=== PATIENT | female | born 1970 | race American Indian/Alaskan Native ===

== ENCOUNTER 2019-02-15 13:44 | Outpatient (CLI) | payer OTHER | END 2019-02-15 13:45 | disposition home or self-care (01) | LOC: C.USIC 13:44 ==

== ENCOUNTER 2019-02-17 18:14 | Emergency (ER) | payer OTHER ==
[2019-02-17] MEDS ORDERED: Sodium Chloride 0.9% 1,000 ML IV STA (19:35)
--- NOTE | 2019-02-17 19:40 | C.PDOC ---
History Of Present Illness 48 y/o F c PMHx knee arthritis p/w back pain x 3 days. Pain is lower back, midline, sharp, intermittent, worse with movement, radiates to LLQ and down L thigh towards L knee. Severe in intensity. Denies fever, chills, chest pain, dys pnea, trauma, nausea, vomiting, diarrhea, constipation, dysuria, hormone use, recent travel, cough. PMD [place] Time Seen by Provider: 02/17/19 19:19 Chief Complaint (Nursing): Abdominal Pain Past Medical History Vital Signs: Last Vital Signs Temp 98.3 F 02/17/19 18:19 Pulse 71 02/17/19 18:19 Resp 17 02/17/19 18:19 BP 145/84 02/17/19 18: Pulse Ox 100 02/17/19 18:19 - Medical History PMH: Arthritis Surgical History: No Surg Hx Family History: States: No Known Family Hx - Social History Hx Alcohol Use: No Hx Substance Use: No - Immunization History Hx Tetanus Toxoid Vaccination: No Hx Influenza Vaccination: Yes Hx Pneumococcal Vaccination: No Review Of Systems Except As Marked, All Systems Reviewed And Found Negative. Constitutional: Negative for: Fever Respiratory: Negative for: Shortness of Breath Physical Exam - Physical Exam Additional Physical Exam Comments: gen nad head nc/at eyes perrl ent mmm neck supple chest no tenderness cv regular rate lungs cta bl abd tenderness without guarding or rebound back no cva or midline tenderness extremities no deformity, no calf edema or tenderness skin no rash neuro alert, no focal deficit ED Course And Treatment - Laboratory Results Result Diagrams: 02/17/19 19:50 02/17/19 19:50 O2 Sat by Pulse Oximetry: 100 Medical Decision Making Medical Decision Making: CT abd/pelvis EXAM: CT Abdomen and Pelvis with IV contrast CLINICAL HISTORY: Llq and back pain TECHNIQUE: Axial computed tomography images of the abdomen and pelvis with intravenous contrast. 0.00 mGy-cm CONTRAST: With; 100MLS VISI 320 COMPARISON: None provided. FINDINGS: LUNG BASES: The lung bases appear clear. No pleural effusions are seen. LIVER: Unremarkable. GALLBLADDER AND BILE DUCTS: The gallbladder appears normal in size and configuration. A solitary 3.9 mm cholelith is noted within the gallbladder. No biliary ductal dilatation is evident. PANCREAS: Unremarkable. SPLEEN: Unremarkable. ADRENAL GLANDS: Unremarkable. KIDNEYS, URETERS, AND BLADDER: The kidneys appear within normal limits. There is no hydronephrosis or hydroureter. A 2.9 mm punctate calcification is seen along the left posterior urinary bladder in the region of the UVJ. This is suspicious for a non--obstructing calculus. The urinary bladder is thick walled compatible with cystitis. STOMACH AND BOWEL: Unremarkable appearance of the stomach and bowel. No evidence of bowel obstruction. No evidence suggesting enteritis or colitis. APPENDIX: No evidence of acute appendicitis on CT examination. PERITONEUM: No free fluid. No free air. LYMPH NODES: No lymphadenopathy is evident. REPRODUCTIVE: Enlarged bulky fibroid uterus. Ovaries are grossly normal. VASCULATURE: No evidence of abdominal aortic aneurysm. BONES: No aggressive appearing osseous lesion. No acute osseous pathology evident. IMPRESSION: 1. Findings suspicious for a 2.9 mm non-obstructing calculus at the left UVJ. 2. A solitary 3.9 mm cholelith is noted within the gallbladder. 3. Cystitis. 4. Fibroid uterus. Electronically signed on Feb 17, 2019 11:21:01 PM EDT by: Frederick Hollingsworth M.D., ISIDRO Certified By [facility] [employer] [facility] Fellowship Trained MRI and CT Specialist F/u Urology. GARBAGE PERSON checked, no previous entries, informed of risks of narcotic medication. Disposition - Disposition Referrals: Chadwick Powell MD [Staff Provider] - Alex Moore MD [Staff Provider] - Disposition: HOME/ ROUTINE Disposition Time: 23:22 Condition: GOOD Prescriptions: Famotidine [Pepcid] 1 tab PO BID #14 tab Ibuprofen [Motrin] 600 mg PO Q6 #25 tab Ondansetron ODT [Zofran ODT] 4 mg PO Q8 #12 odt oxyCODONE/Acetaminophen [Percocet 5/325 mg Tab] 1 tab PO Q6 #10 tab Tamsulosin [Flomax] 0.4 mg PO DAILY #5 cap Instructions: Kidney Stones in Adults Forms: [facility] (Polish) - Clinical Impression Clinical Impression: Kidney stone
[2019-02-17 19:54] LABS: BASO % 0.4 % (0.0-2.0); EOS % 0.2 % (0.0-4.0); HEMOGLOBIN 11.8 g/dL (11.0-16.0); LYMPH # 1.2 K/uL (1.0-4.3); LYMPH % 18.2 % (20.0-40.0); MEAN CELL VOLUME 88.9 fL (81.0-99.0); MEAN CORPUSCULAR HEMOGLOBIN 29.8 pg (27.0-31.0); MEAN CORPUSCULAR HGB CONC 33.5 g/dL (33.0-37.0); MEAN PLATELET VOLUME 9.6 fL (7.2-11.7); MONO # 0.3 K/uL (0.0-0.8); MONO % 4.6 % (0.0-10.0); NEUT # 5.2 K/uL (1.8-7.0); NEUT % 76.6 % (50.0-75.0); RBC 3.96 Mil/uL (3.80-5.20); RED CELL DISTRIBUTION WIDTH 12.9 % (11.5-14.5); WHITE BLOOD COUNT 6.8 K/uL (4.8-10.8)
[2019-02-17] MEDS ORDERED: Sodium Chloride 0.9% 1,000 ML ONE (20:01)
[2019-02-17 20:07] LABS: ALB/GLOB RATIO 1.6 (1.0-2.1); ALBUMIN 4.4 g/dL (3.5-5.0); ALT/SGPT 16 U/L (9-52); AST/SGOT 24 U/L (14-36); BLOOD UREA NITROGEN 11 mg/dL (7-17); CALCIUM 9.6 mg/dl (8.6-10.4); GFR NON-AFRICAN AMERICAN > 60; LIPASE 36 U/L (23-300)
[2019-02-17 20:11] LABS: SQUAMOUS EPITHIAL 1 /hpf (0-5); URINE BACTERIA RARE (<OCC); URINE BILIRUBIN NEGATIVE (NEGATIVE); URINE BLOOD 1+ (NEGATIVE); URINE CLARITY Clear (Clear); URINE COLOR Yellow (YELLOW); URINE GLUCOSE (UA) NORMAL (Normal); URINE LEUKOCYTE ESTERASE NEG Leu/uL (Negative); URINE PROTEIN NEGATIVE (NEGATIVE); URINE UROBILINOGEN NORMAL mg/dL (0.2-1.0)
[2019-02-17 20:16] LABS: HCG,QUALITATIVE URINE NEGATIVE (NEGATIVE)
[2019-02-17] MEDS ORDERED: Iodixanol 320 MG/ML 100 ML BOTTLE IV ONE (20:24)
[2019-02-17 23:47] VITALS: BP 138/76; PULSE 82; RESP 20; TEMP 98.9; O2SAT 96
--- NOTE | 2019-02-18 05:59 | CT ---
Date of service: 02/17/2019 PROCEDURE: CT Abdomen and Pelvis with contrast HISTORY: LLQ pain, back pain COMPARISON: Comparison is made to the previous ultrasound of the pelvis dated 02/15/2019 TECHNIQUE: Contrast dose: 100 mL of Visipaque 320 intravenously. Radiation dose: Total exam DLP = 1053.43 mGy-cm. This CT exam was performed using one or more of the following dose reduction techniques: Automated exposure control, adjustment of the mA and/or kV according to patient size, and/or use of iterative reconstruction technique. FINDINGS: LOWER THORAX: Unremarkable. LIVER: Unremarkable. No gross lesion or ductal dilatation. GALLBLADDER AND BILE DUCTS: Gallstone is noted without evidence of acute cholecystitis. PANCREAS: Unremarkable. No gross lesion or ductal dilatation. SPLEEN: Unremarkable. ADRENALS: Unremarkable. No mass. KIDNEYS AND URETERS: Heterogeneous enhancement of the renal cortex. Correlate clinically for pyelonephritis. Suspicious for 2.9 millimeter nonobstructing calculus at the left UV junction. No evidence of hydronephrosis or hydroureter. VASCULATURE: Unremarkable. No aortic aneurysm. No aortic atherosclerotic calcification or mural plaque present. BOWEL: Unremarkable. No obstruction. No gross mural thickening. APPENDIX: Normal appendix. PERITONEUM: Unremarkable. No free fluid. No free air. LYMPH NODES: Unremarkable. No enlarged lymph nodes. BLADDER: Circumferential urinary bladder wall thickening is noted. REPRODUCTIVE: The uterus is heterogeneous and enlarged. There is pedunculated fibroid seen anterior and superior to the uterine fundus. BONES: No acute fracture. OTHER FINDINGS: None. IMPRESSION: Suspicious for 2.9 millimeter nonobstructing calculus at the left UV junction. Heterogeneous enhancement of the renal cortex. Correlate clinically for pyelonephritis. Gallstone without evidence of cholecystitis. Diffuse urinary bladder wall thickening suspicious for cystitis. Fibroid uterus. Preliminary report was submitted by [facility] contains concordant findings.
== END 2019-02-17 23:47 | disposition home or self-care (01) ==
LOC: C.ER 18:14
DX: N20.0 Calculus of kidney (principal)
CPT/HCPCS: 74177; 80053; 81001; 82550; 83690; 84702; 84703; 85025; 87086; 96361; 96374; 99285; J1885; J7030; Q9967

== ENCOUNTER → 2019-02-21 | Outpatient (CLI) | payer OTHER | END | disposition home or self-care (01) | LOC: C.RADIC 11:47 | DX: N20.0 Calculus of kidney (principal) ==